=== PATIENT | female | born 1995 | race Caucasian/White ===

== ENCOUNTER 2018-10-24 14:58 | Emergency (ER) | payer SELFPAY ==
[~2018-10-24] VITALS: Ht 165.1 cm; Wt 58.0 kg
[2018-10-24 15:46] LABS: BASOPHILS # (AUTO) 0.01 x10^3/uL (0-0.3); BASOPHILS % (AUTO) 0 % (0-1); EOSINOPHILS # (AUTO) 0.05 x10^3/uL (0-0.8); EOSINOPHILS % (AUTO) 1 % (1-7); LYMPHOCYTES # (AUTO) 1.91 x10^3/uL (1-6.1); LYMPHOCYTES % (AUTO) 29 % (22-44); MD NO; MEAN CORPUSCULAR HGB CONC 33.4 g/dL (32.4-35.8); MEAN CORPUSCULAR VOLUME 86.8 fL (80-100); MONOCYTES # (AUTO) 0.54 x10^3/uL (0-1.4); MONOCYTES % (AUTO) 8 % (2-9); NEUTROPHILS # (AUTO) 4.16 x10^3/uL (1.8-8.0); NEUTROPHILS % (AUTO) 62 % (42-75); PLATELET COUNT 302 x10^3/uL (130-400); RED BLOOD COUNT 4.86 x10^6/uL (3.82-5.3); RED CELL DISTRIBUTION WIDTH 13.3 % (9.6-15.2)
[2018-10-24 15:52] LABS: ALBUMIN 4.2 g/dL (3.4-5.0); ANION GAP 7 mmol/L (5-15); CALCIUM 9.1 mg/dL (8.5-10.1); CHLORIDE 107 mmol/L (98-107)
[2018-10-24 15:59] LABS: ALANINE AMINOTRANSFERASE 19 U/L (12-78); ALKALINE PHOSPHATASE 88 U/L (45-117); BILIRUBIN,TOTAL 0.3 mg/dL (0.2-1.0); CREATININE 0.75 mg/dL (0.55-1.02); SALICYLATE LEVEL < 1.7 mg/dL (2.8-20.0); TOTAL PROTEIN 7.7 g/dL (6.4-8.2)
[2018-10-24 16:00] LABS: ACETAMINOPHEN < 2 mcg/mL (10-30)
--- NOTE | 2018-10-24 16:13 | NUR ---
patient safe in room, sitter present outside room with line of sight, calm and conversant.
[2018-10-24 16:29] LABS: AMPHETAMINE SCREEN, URINE Negative (Negative); BARBITURATE SCREEN, URINE Negative (Negative); BENZODIAZEPINE SCREEN, URINE Negative (Negative); CANNABINOID SCREEN, URINE Negative (Negative); COCAINE SCREEN, URINE Negative (Negative); METHADONE SCREEN, URINE Negative (Negative); OPIATE SCREEN, URINE Negative (Negative)
--- NOTE | 2018-10-24 16:36 | NUR ---
POC discussed with MD Shen and patient, she is feeling slightly depressed lately her parents have encouraged her to have a psych eval, she has NO SI or other destructive thoughts. endorses no drug use and minimal alcohol. safety maintained, pwd, nadn, no pain, vss on room air. call light in reach.
--- NOTE | 2018-10-24 18:02 | NUR ---
telepsych evaluation completed, patient remains safe in room, water provided, blankets offered, patient expresses no additional needs at this time.
--- NOTE | 2018-10-24 20:52 | NUR ---
Pt made aware that she has been put on a hold. Pt very upset with rn and asking to see her parents. Pt again informed of plan of care and told that once she complies with plan of care RN will go to lobby to find her parents. Pt to change in restroom and demands to see parents. Pt very manipulative in trying to get what she wants. Room secured, pt belongings bagged and labeled, 2 bags, and placed in locker. Pt provided with warm blankets and new socks. Pt has given permission to rn to speak to her parents regarding her hold situation.
--- NOTE | 2018-10-24 21:22 | NUR ---
pt parents Xenia Jackson and Aristeo [phone]
--- NOTE | 2018-10-24 22:14 | NUR ---
Pt given a sandwich, chips and drink. Pt also provided with pillow and warm blanket for comfort. Room secured, sitter at doorway. Pt resting on gurney watching tv, no additional needs expressed at this time.
--- NOTE | 2018-10-24 22:19 | NUR ---
TP:PT IS SELF PAY. REFERRAL PACKET FAXED TO [facility] AND [facility]. [facility] ASKED FOR PACKET TO BE FAXED DESPITE BEING SELF PAY. [facility] WAS CALLED AND STATES WILL NOT ACCEPT PT DUE TO SELF PAY.
--- NOTE | 2018-10-24 23:07 | NUR ---
Pt resting on gurney watching tv, no additional needs expressed at this time. Pt appears calm and relaxed. Room secured and sitter at doorway. Will cont to monitor.
--- NOTE | 2018-10-25 01:24 | NUR ---
Pt provided with sprite as requested, no additional needs expressed at this time. Pt awake and watching tv, sitter at doorway.
--- NOTE | 2018-10-25 03:05 | NUR ---
Pt resting on gurney watching tv at this time. Room secured and sitter at doorway. No needs expressed at this time.
--- NOTE | 2018-10-25 04:13 | NUR ---
Pt sleeping with TV on. Room secured and sitter at doorway. Will cont to monitor.
--- NOTE | 2018-10-25 05:04 | NUR ---
Pt awake in bed watching tv at this time. No additional needs expressed at this time.
--- NOTE | 2018-10-25 07:20 | NUR ---
RECEIVED REPORT. PT IS RESTING ON GURNEY WITH EYES CLOSED. AITTER IS WITHIN DIRECT LINE OF SIGHT.
--- NOTE | 2018-10-25 09:00 | NUR ---
PT'S STEP-FATHER CALLED FOR WELFARE CHECK. PT IS RESTING ON GURNEY WITH EYES CLOSED. RESPIRATIONS ARE EVEN AND UNLABORED. PO FLUIDS AT BEDISDE.
--- NOTE | 2018-10-25 10:07 | NUR ---
PT IS RESTING ON GURNEY WITH EYES CLOSED . RESPIRATIONS ARE EVEN AND UNLABORED. SITTER IS WITHIN DIRECT LINE OF SIGHT.
--- NOTE | 2018-10-25 10:40 | NUR ---
PT IS RESTING ON GURNEY WITH EYES CLOSED , RESPIRATIONS ARE EVEN AND UNLABORED. SITTER IS WITHIN DIRECT LINE OF SIGHT. WAITING FOR ACCEPTANCE BY [facility].
--- NOTE | 2018-10-25 12:31 | NUR ---
LUNCH ORDERED. PT PLACED ON HOSPITAL BED FOR COMFORT. UPDATED PT ON POC. SHE VERBALIZED UNDERSTANDING. PT IS CALM AND COOPERATIVE AT THIS TIME.
--- NOTE | 2018-10-25 13:34 | NUR ---
RECEIVED REPORT FROM SHERLY REED. PT RESTING ON [facility]. ELPIDIO. SITTER AT BEDSIDE. ROOM REMAINS SECURE.
[2018-10-25 14:09] VITALS: BP 117/61
--- NOTE | 2018-10-25 14:20 | NUR ---
PT RESTING IN BED. NADN. SITTER REMAINS AT BEDSIDE. ROOM REMAINS SECURE.
--- NOTE | 2018-10-25 15:30 | NUR ---
PT RESTING ON GURNEY. MAGALLANES. REPORT GIVEN TO TRINY FROM [facility]. AWAITING RESPONSE ON PLACEMENT FOR PT.
--- NOTE | 2018-10-25 16:05 | NUR ---
TRINY FROM [facility] SPEAKING W/ PT OVER THE PHONE ABOUT ACCEPTING PT AND POSSIBLE OUT OF POCKET EXPENSE.
--- NOTE | 2018-10-25 16:46 | NUR ---
[facility] MARIANO TO TRANSPORT PT TO [place] AT [address].
== END 2018-10-24 17:48 ==
LOC: ED 16:16 → UNDOADMOB 20:27 → EDIP 20:27
DX: F33.0 Major depressive disorder, recurrent, mild (principal)
CPT/HCPCS: 36415; 80053; 80307; 80329; 84703; 85025; 99285; G0480